=== PATIENT | female | born 1970 | race Caucasian/White ===

== ENCOUNTER → 2016-08-14 | Outpatient (CLI) | payer OTHER ==
[~2016-08-14] MED LIST: CETI10TA84 PO; CHOL100010; LRT5 PO; PRENTAB26 PO; PSYL48.59
--- NOTE | 2016-08-14 09:51 | DIAGNOSTIC IMAGING REPORT ---
RIGHT FOOT MIN 3 VIEWS ROUTINE CLINICAL HISTORY: Right foot pain. Evaluate for stress fracture. COMPARISON: None FINDINGS: The tarsometatarsal joints are intact. There is a bipartite medial sesamoid of the great toe. No fracture or suspicious lesion is evident. There is no radiographic evidence of a stress fracture. Minimal arthritis is shown within several articulations of the right foot. IMPRESSION: 1. No acute fracture or dislocation within the right foot. No radiographic evidence of a stress fracture. 2. Minimal arthritis within several articulations of the right foot. Electronically signed by: Joaquin Parker M.D. 08/14/2016 9:49 AM Dictated Date/Time: 08/14/2016 9:41 AM
== END | disposition home or self-care (01) ==
LOC: C.RAD1850 09:33
PROVIDERS: ATTEND Obstetrics & Gynecology
DX: M19.071 Primary osteoarthritis, right ankle and foot (principal)

== ENCOUNTER → 2016-08-28 | Outpatient (CLI) | payer OTHER | END | disposition home or self-care (01) | LOC: C.LABSPEC 14:40 | PROVIDERS: ATTEND Obstetrics & Gynecology | DX: O09.513 Supervision of elderly primigravida, third trimester (principal); Z3A.00 Weeks of gestation of pregnancy not specified ==

== ENCOUNTER 2016-09-26 19:40 | Inpatient (IN) | payer OTHER ==
[~2016-09-26] VITALS: Ht 162.6 cm; Wt 94.5 kg
[~2016-09-26 19:40] MED LIST changes: -CETI10TA84 PO; -CHOL100010; -PRENTAB26 PO; -PSYL48.59
[2016-09-26 21:41] VITALS: BMI 30.8
[2016-09-26 21:42] LABS: ALT/SGPT 24 U/L (12-78); BLOOD UREA NITROGEN 16 mg/dl (7-18); BUN/CREATININE RATIO 11.6 (10-20); CARBON DIOXIDE 22 mmol/L (21-32); CHLORIDE 102 mmol/L (98-107); GLUCOSE 87 mg/dl (70-99); POTASSIUM 3.9 mmol/L (3.5-5.1); SODIUM 134 mmol/L (136-145)
[2016-09-26 21:45] LABS: ALB/GLOB RATIO 0.6 (0.9-2); ALKALINE PHOSPHATASE 208 U/L (45-117); AST/SGOT 22 U/L (15-37)
[2016-09-26] MEDS ORDERED: LACTATED RINGER'S 1000ML 1,000 ML IV PRN (21:55)
[2016-09-26 21:57] LABS: URINE PROTIEN/CREAT RATIO 0.2 (0-0.2); URINE TOTAL PROTEIN 29.3 mg/dl (0-11.9)
[2016-09-26] MEDS ORDERED: LABETALOL HCL IV 5 MG/ML 20ML IV PRN (22:00)
[2016-09-26] MEDS ORDERED: ACETAMINOPHEN 325 MG TAB PO STA (22:05)
[2016-09-26] MEDS ORDERED: MAGNESIUM SULFATE 4GM / WTR 100ML IV ONE (22:15)
[2016-09-26 22:34] LABS: HEMATOCRIT 34.3 % (37-47); MEAN CELL VOLUME 84.3 fL (80-100); MEAN CORPUSCULAR HEMOGLOBIN 30.2 pg (25-34); RED BLOOD COUNT 4.07 M/uL (4.2-5.4); WHITE BLOOD COUNT 11.22 K/uL (4.8-10.8)
[2016-09-26] MEDS: LACTATED RINGER'S 1000ML 1,000 ML IV SCH (22:41)
[2016-09-26 22:46] LABS: MEAN CORPUSCULAR HGB CONC 35.9 g/dl (32-36); PLATELET COUNT 120 K/uL (130-400); PLT ESTIMATE DECREASED
[2016-09-26] MEDS: MAGNESIUM SULFATE / WTR 1,000 ML IV SCH (23:22)
[2016-09-27 01:09] VITALS: Ht 162.6 cm; Wt 94.5 kg
[2016-09-27] MEDS ORDERED: CETI10TA84 PO (01:09)
[2016-09-27] MEDS ORDERED: CHOL100010 (01:09)
[2016-09-27] MEDS ORDERED: PRENTAB26 PO (01:09)
[2016-09-27] MEDS ORDERED: PSYL48.59 (01:09)
[2016-09-27] MEDS ORDERED: LACTATED RINGER'S 1000ML 500 ML IV PRN (07:16)
[2016-09-27] MEDS: OXYTOCIN 30 UNITS/500ML NSS IV PRN ×2 (08:09→17:47)
[2016-09-27 08:20] LABS: BUN/CREATININE RATIO 12.5 (10-20); CALCIUM 8.5 mg/dl (8.5-10.1); CREATININE 1.1 mg/dl (0.60-1.20); POTASSIUM 3.7 mmol/L (3.5-5.1)
[2016-09-27 08:24] LABS: ALB/GLOB RATIO 0.6 (0.9-2)
[2016-09-27 08:28] LABS: HEMATOCRIT 36.3 % (37-47); MEAN CELL VOLUME 83.8 fL (80-100); MEAN CORPUSCULAR HEMOGLOBIN 30.3 pg (25-34); MEAN CORPUSCULAR HGB CONC 36.1 g/dl (32-36); PLATELET COUNT 117 K/uL (130-400); RED BLOOD COUNT 4.33 M/uL (4.2-5.4); WHITE BLOOD COUNT 12.12 K/uL (4.8-10.8)
[2016-09-27] MEDS ORDERED: CETIRIZINE HCL 10 MG TAB PO ONE (08:45)
[2016-09-27] MEDS ORDERED: ACETAMINOPHEN 325 MG TAB PO STA (12:55)
[2016-09-27] MEDS ORDERED: ACETAMINOPHEN 325 MG TAB ONE (12:56)
[2016-09-27 14:46] LABS: MEAN CORPUSCULAR HGB CONC 35.4 g/dl (32-36)
[2016-09-27 15:00] LABS: HEMATOCRIT 36.4 % (37-47); MEAN CELL VOLUME 85.8 fL (80-100); MEAN CORPUSCULAR HEMOGLOBIN 30.4 pg (25-34); RED BLOOD COUNT 4.24 M/uL (4.2-5.4); WHITE BLOOD COUNT 11.32 K/uL (4.8-10.8)
[2016-09-27 15:08] LABS: PLATELET COUNT 114 K/uL (130-400)
[2016-09-27 15:09] LABS: BASO % 0.3 %; BASO ABS # 0.03 K/uL (0-0.2); COMPLETE YES; EOS % 0.7 %; GIANT PLATELETS 1+; IG% 0.3 %; LYMPH % 11.5 %; MONO % 10.1 %; NEUT % 77.1 %; PLT ESTIMATE DECREASED
[2016-09-27 15:25] LABS: ALB/GLOB RATIO 0.7 (0.9-2); BUN/CREATININE RATIO 10.2 (10-20); CALCIUM 8.1 mg/dl (8.5-10.1); CREATININE 1.1 mg/dl (0.60-1.20); POTASSIUM 4.2 mmol/L (3.5-5.1)
[2016-09-27] MEDS ORDERED: MISOPROSTOL 25 MCG TAB ONE (17:21)
[2016-09-27] MEDS ORDERED: MISOPROSTOL 25 MCG TAB PV SCH ×2 (17:30→20:00)
[2016-09-27] MEDS: LACTATED RINGER'S 1000ML 1,000 ML IV SCH (22:14)
[2016-09-27] MEDS: MAGNESIUM SULFATE / WTR 1,000 ML IV SCH (22:22)
[2016-09-27 22:39] LABS: ALB/GLOB RATIO 0.6 (0.9-2); BUN/CREATININE RATIO 10.3 (10-20); CALCIUM 7.9 mg/dl (8.5-10.1); MAGNESIUM 5.7 mg/dl (1.8-2.4); POTASSIUM 3.5 mmol/L (3.5-5.1); URIC ACID 5.4 mg/dl (2.6-7.2)
[2016-09-27 22:47] LABS: HEMATOCRIT 34.7 % (37-47); MEAN CELL VOLUME 83.8 fL (80-100); MEAN CORPUSCULAR HGB CONC 35.7 g/dl (32-36); MEAN PLATELET VOLUME 13.7 fL (7.4-10.4); PLATELET COUNT 109 K/uL (130-400); RED BLOOD COUNT 4.14 M/uL (4.2-5.4)
[2016-09-28] MEDS ORDERED: BUPIVACAINE 0.25% 30 ML VIAL ONE ×3 (00:13→17:30)
[2016-09-28] MEDS ORDERED: FENTANYL 2MCG/ML ROPIV 1.25MG/ML 100ML BAG EPI ONE (00:13)
[2016-09-28] MEDS ORDERED: FENTANYL CITRATE INJ 50 MCG/1 ML 2 ML VIAL ONE ×3 (00:13→17:31)
[2016-09-28] MEDS ORDERED: EpHEDrine SULFATE INJ 50 MG/ML AMP ONE (00:13)
[2016-09-28] MEDS: LACTATED RINGER'S 1000ML 1,000 ML IV SCH ×2 (01:27→14:52)
[2016-09-28] MEDS ORDERED: NALOXONE HCL INJ 1 MG in SODIUM CHLORIDE 0.9% 1000ML 1,000 ML IV PRN ×4 (01:29)
[2016-09-28] MEDS ORDERED: LACTATED RINGER'S 1000ML 500 ML IV PRN (01:29)
[2016-09-28] MEDS ORDERED: EpHEDrine SULFATE INJ 50 MG/ML AMP IV PRN (01:30)
[2016-09-28] MEDS ORDERED: NALBUPHINE HCL INJ 10 MG/ML AMP IV PRN (01:30)
[2016-09-28] MEDS ORDERED: PROMETHAZINE HCL INJ 25 MG in SODIUM CHLORIDE 0.9% 50ML 50 ML IV PRN (01:30)
[2016-09-28] MEDS ORDERED: DiphenhydrAMINE HCL 50 MG/ML VIAL IV PRN (01:30)
[2016-09-28] MEDS ORDERED: NALOXONE HCL INJ 0.4 MG/1 ML VIAL/CARP IV PRN (01:30)
[2016-09-28] MEDS ORDERED: ONDANSETRON INJ 2 MG/ML 2 ML VIAL IV PRN (01:30)
[2016-09-28 05:07] LABS: ALB/GLOB RATIO 0.6 (0.9-2); BUN/CREATININE RATIO 8.6 (10-20); CALCIUM 7.7 mg/dl (8.5-10.1); MAGNESIUM 5.2 mg/dl (1.8-2.4); POTASSIUM 3.6 mmol/L (3.5-5.1); URIC ACID 5.3 mg/dl (2.6-7.2)
[2016-09-28 05:10] LABS: HEMATOCRIT 32.9 % (37-47); MEAN CELL VOLUME 85.9 fL (80-100); MEAN CORPUSCULAR HEMOGLOBIN 30.3 pg (25-34); MEAN CORPUSCULAR HGB CONC 35.3 g/dl (32-36); PLATELET COUNT 103 K/uL (130-400); RED BLOOD COUNT 3.83 M/uL (4.2-5.4); WHITE BLOOD COUNT 8.73 K/uL (4.8-10.8)
[2016-09-28 05:11] LABS: PLT ESTIMATE DECREASED
[2016-09-28] MEDS: FENTANYL 2MCG/ML ROPIV 1.25MG/ML 100ML BAG EPI PRN ×6 (06:58→21:03)
[2016-09-28] MEDS ORDERED: CETIRIZINE HCL 10 MG TAB PO PRN (09:00)
--- NOTE | 2016-09-28 10:46 | Anesthesiology Progress Note ---
Anesthesia Progress Note Date of Service Sep 28, 2016. Progress Notes Called by nursing 2/2 increased labor pain in lower abdominal area. I administered 3mL of 0.25% bupivacaine and 50mcg of fentanyl through her epidural. VSS throughout. Pt stated having improved pain relief after the bolus.
[2016-09-28 12:52] LABS: HEMATOCRIT 34.3 % (37-47); MEAN CELL VOLUME 86.6 fL (80-100); MEAN CORPUSCULAR HEMOGLOBIN 30.6 pg (25-34); MEAN CORPUSCULAR HGB CONC 35.3 g/dl (32-36); PLATELET COUNT 98 K/uL (130-400); PLT ESTIMATE DECREASED; RED BLOOD COUNT 3.96 M/uL (4.2-5.4); WHITE BLOOD COUNT 13.44 K/uL (4.8-10.8)
[2016-09-28 13:04] LABS: ALB/GLOB RATIO 0.7 (0.9-2); BUN/CREATININE RATIO 7.7 (10-20); CREATININE 1.1 mg/dl (0.60-1.20); MAGNESIUM 5.1 mg/dl (1.8-2.4); POTASSIUM 3.7 mmol/L (3.5-5.1)
[2016-09-28] MEDS ORDERED: ACETAMINOPHEN 500 MG TAB PO ONE (16:30)
[2016-09-28] MEDS ORDERED: AMPICILLIN IV 2,000 MG in SODIUM CHLOR 0.9% AD-VAN 100ML 100 ML IV ONE (16:30)
[2016-09-28] MEDS: OXYTOCIN 30 UNITS/500ML NSS IV PRN (16:41)
--- NOTE | 2016-09-28 18:01 | Anesthesiology Progress Note ---
Anesthesia Progress Note Date of Service Sep 28, 2016. Progress Notes Called by nursing 2/2 increasing labor pains. The pt stated more left lower abdominal discomfort with contractions. The pt was placed in left lateral position. The epidural was bolused with 4mL of 0.25% bupivacaine and 100mcg of fentanyl. VSS throughout. The pt stated improved labor pain after epidural bolus.
[2016-09-28 21:14] LABS: HEMATOCRIT 34.5 % (37-47); MEAN CELL VOLUME 86.5 fL (80-100); MEAN CORPUSCULAR HEMOGLOBIN 30.1 pg (25-34); MEAN CORPUSCULAR HGB CONC 34.8 g/dl (32-36); MEAN PLATELET VOLUME 13.6 fL (7.4-10.4); PLATELET COUNT 93 K/uL (130-400); RED BLOOD COUNT 3.99 M/uL (4.2-5.4); WHITE BLOOD COUNT 21.57 K/uL (4.8-10.8)
[2016-09-28 21:19] LABS: BUN/CREATININE RATIO 7.9 (10-20); CALCIUM 8.1 mg/dl (8.5-10.1); CREATININE 1.2 mg/dl (0.60-1.20); POTASSIUM 3.5 mmol/L (3.5-5.1)
[2016-09-28 21:21] LABS: ALB/GLOB RATIO 0.6 (0.9-2)
[2016-09-28] MEDS ORDERED: AMPICILLIN IV 2,000 MG in SODIUM CHLOR 0.9% AD-VAN 100ML 100 ML IV SCH (22:00)
[2016-09-29] MEDS ORDERED: METHYLERGONOVINE MALEATE 0.2 MG/ML AMP ONE (01:28)
[2016-09-29] MEDS: OXYTOCIN 30 UNITS/500ML NSS IV PRN (02:24)
[2016-09-29] MEDS ORDERED: MISOPROSTOL 200 MCG TAB ONE (02:27)
[2016-09-29] MEDS ORDERED: DIPHTHERIA/TETANUS/PERTUSSIS 0.5 ML SYR/VIAL IM. ONE (02:30)
[2016-09-29] MEDS ORDERED: SUPERCREAM 0.870 % 15GM JAR EXT PRN (02:30)
[2016-09-29] MEDS ORDERED: LANOLIN OINT EXT PRN ×2 (02:30)
[2016-09-29] MEDS ORDERED: ACETAMINOPHEN/CODEINE 300/30MG TAB PO PRN ×2 (02:30)
[2016-09-29] MEDS ORDERED: HYDROCORTISONE ACETATE 25 MG SUPP PR PRN (02:30)
[2016-09-29] MEDS ORDERED: ACETAMINOPHEN 325 MG TAB PO PRN (02:30)
[2016-09-29] MEDS ORDERED: CETIRIZINE HCL 10 MG TAB PO PRN (02:30)
[2016-09-29] MEDS ORDERED: BENZOCAINE 20% AER SPR 82.5 GM CAN EXT PRN (02:30)
[2016-09-29] MEDS ORDERED: OXYTOCIN 30 UNITS/500ML NSS IV PRN (02:30)
[2016-09-29] MEDS ORDERED: MAGNESIUM SULFATE / WTR 1,000 ML IV SCH (02:30)
[2016-09-29] MEDS ORDERED: MISOPROSTOL 200 MCG TAB PR STA (02:55)
[2016-09-29] MEDS: OXYTOCIN INJ 20 UNITS in LACTATED RINGER'S 1000ML 1,000 ML IV SCH ×2 (03:11→14:59)
[2016-09-29] MEDS: CEFAZOLIN IV 2,000 MG in DEXTROSE 5% 50ML 50 ML IV SCH ×3 (03:41→19:09)
--- NOTE | 2016-09-29 04:50 | DELIVERY SUMMARY ---
DATE OF OPERATION: 09/29/2016 The patient dilated to complete and pushed to deliver a viable female infant, Apgars 3, 8, 9 via over a second-degree perineal laceration. M/N bulb suctioned at perineum and shoulders and body delivered with ease. Infant with decreased tone upon delivery and cord doubly clamped and cut and infant to radiant warmer for drying and attention. Cord blood and cord gases were obtained. Meconium stained fluid had previously been noted. Cervix and sulcit were inspected and intact. The laceration was repaired in typical fashion using 3-0 Vicryl. With gentle traction on the umbilical cord the cord avulsed. Manual extraction of the placenta then took placed. The uterus was then explored x 2 and no retained products of conception noted and bimanual massage given. Dilute Pitocin was begun, however hemostasis was inadequate and therefore 800 mcg of rectal Cytotec was administered. Drainage of the bladder took placed under sterile conditions for approximately 300cc. This resulted in improved uterine tone. Mother and baby stable in recovery. EBL of 500 mL. I attest to the content of the Intraoperative Record and any orders documented therein. Any exceptions are noted below. MTDD
[2016-09-29 07:55] LABS: BASO % 0.1 %; BASO ABS # 0.02 K/uL (0-0.2); COMPLETE YES; HEMATOCRIT 26.5 % (37-47); IG% 0.4 %; LYMPH % 3.4 %; LYMPH ABS # 0.95 K/uL (1.2-3.4); MEAN CELL VOLUME 86.3 fL (80-100); MEAN CORPUSCULAR HEMOGLOBIN 30.3 pg (25-34); MEAN CORPUSCULAR HGB CONC 35.1 g/dl (32-36); MONO % 5.4 %; NEUT % 90.7 %; PLATELET COUNT 101 K/uL (130-400); PLT ESTIMATE NORMAL; RED BLOOD COUNT 3.07 M/uL (4.2-5.4); WHITE BLOOD COUNT 27.68 K/uL (4.8-10.8)
[2016-09-29 07:59] LABS: BUN/CREATININE RATIO 8.6 (10-20); CALCIUM 7.9 mg/dl (8.5-10.1); CREATININE 1.4 mg/dl (0.60-1.20); MAGNESIUM 5.4 mg/dl (1.8-2.4); POTASSIUM 3.6 mmol/L (3.5-5.1)
[2016-09-29 08:01] LABS: ALB/GLOB RATIO 0.5 (0.9-2)
[2016-09-29] MEDS: DOCUSATE SODIUM 100 MG CAP PO SCH ×2 (08:09→20:14)
--- NOTE | 2016-09-29 08:27 | Anesthesia Procedure Note ---
Anesthesia Epidural Removal Nt Date & Time Sep 29, 2016 at 08:27 Vital Signs Pain Intensity: 0.0 Notes Mental Status: alert / awake / arousable, participated in evaluation Nausea / Vomiting: adequately controlled Pain: adequately controlled Airway Patency, RR, SpO2: stable & adequate BP & HR: stable & adequate Hydration State: stable & adequate Neuraxial Anesthesia: was administered, sensory block is resolving Anesthetic Complications: no major complications apparent, pt satisfied with anesthetic care Epidural: removed without complications, with tip intact
[2016-09-29] MEDS: IBUPROFEN 600 MG TAB PO PRN ×3 (08:44→20:14)
[2016-09-29 18:55] LABS: HEMATOCRIT 23.1 % (37-47); MEAN CELL VOLUME 83.4 fL (80-100); MEAN CORPUSCULAR HEMOGLOBIN 30.3 pg (25-34); MEAN CORPUSCULAR HGB CONC 36.4 g/dl (32-36); MEAN PLATELET VOLUME 13.5 fL (7.4-10.4); PLATELET COUNT 110 K/uL (130-400); RED BLOOD COUNT 2.77 M/uL (4.2-5.4); WHITE BLOOD COUNT 24.68 K/uL (4.8-10.8)
[2016-09-29 18:56] LABS: PLT ESTIMATE NORMAL
[2016-09-29 19:07] LABS: ALB/GLOB RATIO 0.6 (0.9-2); BUN/CREATININE RATIO 13.2 (10-20); CALCIUM 7.8 mg/dl (8.5-10.1); CREATININE 1.4 mg/dl (0.60-1.20); MAGNESIUM THERAPEUTIC(L&DONLY) 5.3 mg/dl (1.8-2.4); POTASSIUM 3.5 mmol/L (3.5-5.1)
[2016-09-30] MEDS ORDERED: SODIUM CHLORIDE 0.9% 250ML 250 ML IV SCH (02:00)
[2016-09-30] MEDS ORDERED: SODIUM CHLORIDE 0.9% 1000ML 1,000 ML IV SCH (02:30)
[2016-09-30] MEDS: DOCUSATE SODIUM 100 MG CAP PO SCH ×2 (08:00→19:42)
[2016-09-30 08:10] LABS: HEMATOCRIT 23.3 % (37-47); MEAN CORPUSCULAR HEMOGLOBIN 30.3 pg (25-34); MEAN CORPUSCULAR HGB CONC 35.2 g/dl (32-36); RED BLOOD COUNT 2.71 M/uL (4.2-5.4); WHITE BLOOD COUNT 17.64 K/uL (4.8-10.8)
[2016-09-30 08:12] LABS: CALCIUM 7.9 mg/dl (8.5-10.1); CREATININE 1.2 mg/dl (0.60-1.20); POTASSIUM 3.6 mmol/L (3.5-5.1)
[2016-09-30 08:15] LABS: ALB/GLOB RATIO 0.5 (0.9-2)
[2016-09-30 08:54] LABS: MEAN PLATELET VOLUME 13.6 fL (7.4-10.4); PLATELET COUNT 106 K/uL (130-400)
[2016-09-30 08:55] LABS: BASO % 0.1 %; BASO ABS # 0.02 K/uL (0-0.2); COMPLETE YES; IG% 0.3 %; LARGE PLATELETS 1+; LYMPH % 13.3 %; LYMPH ABS # 2.35 K/uL (1.2-3.4); MONO % 6.9 %; NEUT % 77.4 %; PLT ESTIMATE DECREASED
--- NOTE | 2016-09-30 10:57 | Progress Note ---
Subjective Sep 30, 2016. Subjective conversation w/ patient, physical exam Ambulation: ambulating normally Voiding: incontinence Passing Gas: Yes Diet Tolerance: Regular Diet Lochia: Small Feeding Type: Breast Feeding Pain: no pain issues Comment: notes not much urge to void and then leaks on way to br, voids good volume and thinks she is empty. feels better off mag. no caldwell or other sx. Objective Vital Signs Date Time Temp Pulse Resp B/P Pulse Ox O2 Delivery O2 Flow Rate FiO2 09/30/16 09:52 Room Air Physical Exam General Appearance: WELL-APPEARING, WD/WN, NO APPARENT DISTRESS Respiratory/Chest: lungs clear Cardiovascular: regular rate, rhythm Abdomen: non tender, soft Fundus: Firm, Relation to Umbilicus Extremities: non-tender Laboratory Results Last 24 Hours Test 09/29/16 18:20 09/30/16 07:17 White Blood Count 24.68 K/uL 17.64 K/uL Red Blood Count 2.77 M/uL 2.71 M/uL Hemoglobin 8.4 g/dL 8.2 g/dL Hematocrit 23.1 % 23.3 % Mean Corpuscular Volume 83.4 fL 86.0 fL Mean Corpuscular Hemoglobin 30.3 pg 30.3 pg Mean Corpuscular Hemoglobin Concent 36.4 g/dl 35.2 g/dl RDW Standard Deviation 42.6 fL 44.4 fL RDW Coefficient of Variation 13.9 % 14.1 % Platelet Count 110 K/uL 106 K/uL Mean Platelet Volume 13.5 fL 13.6 fL Nucleated RBC Absolute Count (auto) 0.02 K/uL Nucleated Red Blood Cells % 0.1 % Platelet Estimate NORMAL DECREASED Sodium Level 130 mmol/L 134 mmol/L Potassium Level 3.5 mmol/L 3.6 mmol/L Chloride Level 98 mmol/L 102 mmol/L Carbon Dioxide Level 24 mmol/L 26 mmol/L Anion Gap 8.0 mmol/L 6.0 mmol/L Blood Urea Nitrogen 19 mg/dl 22 mg/dl Creatinine 1.40 mg/dl 1.20 mg/dl Est Creatinine Clear Calc Drug Dose 55.4 ml/min 64.6 ml/min Estimated GFR () 51.7 62.3 Estimated GFR (Non- 44.6 53.8 BUN/Creatinine Ratio 13.2 18.0 Random Glucose 118 mg/dl 70 mg/dl Calcium Level 7.8 mg/dl 7.9 mg/dl Magnesium Level 5.3 mg/dl Total Bilirubin 0.2 mg/dl 0.2 mg/dl Aspartate Amino Transf (AST/SGOT) 29 U/L 28 U/L Alanine Aminotransferase (ALT/SGPT) 17 U/L 16 U/L Alkaline Phosphatase 151 U/L 138 U/L Total Protein 5.3 gm/dl 5.8 gm/dl Albumin 1.9 gm/dl 1.9 gm/dl Globulin 3.4 gm/dl 3.9 gm/dl Albumin/Globulin Ratio 0.6 0.5 Neutrophils (%) (Auto) 77.4 % Lymphocytes (%) (Auto) 13.3 % Monocytes (%) (Auto) 6.9 % Eosinophils (%) (Auto) 2.0 % Basophils (%) (Auto) 0.1 % Neutrophils # (Auto) 13.64 K/uL Lymphocytes # (Auto) 2.35 K/uL Monocytes # (Auto) 1.22 K/uL Eosinophils # (Auto) 0.35 K/uL Basophils # (Auto) 0.02 K/uL Immature Granulocyte % (Auto) 0.3 % Immature Granulocyte # (Auto) 0.06 K/uL Large Platelets 1+ Assessment and Plan Post- Day#: 1 Continue Routine Care: stable, bps good, off magnesium now and labs ok. do not feel any evidence of worsening preeclampsia. rec routine pp care. transfer to floor. may want to use bladder scanner to be sure bladder empty--discussed with pt. she and partner also ask about future childbearing and repeat preeclampsia picture. answered ?s to the best of my ability.
[2016-09-30] MEDS: IBUPROFEN 600 MG TAB PO PRN (12:37)
[2016-09-30 12:58] VITALS: BP 111/55; PULSE 87; TEMP 36.5; O2SAT 99
[2016-09-30 16:10] VITALS: O2SAT 99
[2016-09-30 19:40] VITALS: BP 143/83; PULSE 90; TEMP 36.4
[2016-09-30 23:15] VITALS: BP 121/67; PULSE 84; TEMP 36.5; O2SAT 99
[2016-10-01] MEDS ORDERED: MAGNESIUM SULFATE / WTR 1,000 ML IV SCH (02:30)
[2016-10-01 03:35] VITALS: BP 144/77; PULSE 67; TEMP 36.5; O2SAT 98
--- NOTE | 2016-10-01 06:32 | Progress Note ---
Subjective Oct 01, 2016. Subjective conversation w/ patient, physical exam, chart review Ambulation: ambulating normally Voiding: incontinence Diet Tolerance: Regular Diet Lochia: Moderate Objective Vital Signs Date Time Temp Pulse Resp B/P Pulse Ox O2 Delivery O2 Flow Rate FiO2 10/01/16 03:35 36.5 67 18 144/77 98 Room Air 09/30/16 23:15 36.5 84 20 121/67 99 Room Air 09/30/16 23:15 99 Room Air 09/30/16 19:40 36.4 90 18 143/83 Room Air 09/30/16 16:10 99 Room Air 09/30/16 12:58 36.5 87 18 111/55 99 Room Air 09/30/16 09:52 Room Air Physical Exam General Appearance: WELL-APPEARING Abdomen: non tender Extremities: no calf tenderness Laboratory Results Last 24 Hours Test 09/30/16 07:17 White Blood Count 17.64 K/uL Red Blood Count 2.71 M/uL Hemoglobin 8.2 g/dL Hematocrit 23.3 % Mean Corpuscular Volume 86.0 fL Mean Corpuscular Hemoglobin 30.3 pg Mean Corpuscular Hemoglobin Concent 35.2 g/dl Platelet Count 106 K/uL Mean Platelet Volume 13.6 fL Neutrophils (%) (Auto) 77.4 % Lymphocytes (%) (Auto) 13.3 % Monocytes (%) (Auto) 6.9 % Eosinophils (%) (Auto) 2.0 % Basophils (%) (Auto) 0.1 % Neutrophils # (Auto) 13.64 K/uL Lymphocytes # (Auto) 2.35 K/uL Monocytes # (Auto) 1.22 K/uL Eosinophils # (Auto) 0.35 K/uL Basophils # (Auto) 0.02 K/uL RDW Standard Deviation 44.4 fL RDW Coefficient of Variation 14.1 % Immature Granulocyte % (Auto) 0.3 % Immature Granulocyte # (Auto) 0.06 K/uL Platelet Estimate DECREASED Large Platelets 1+ Sodium Level 134 mmol/L Potassium Level 3.6 mmol/L Chloride Level 102 mmol/L Carbon Dioxide Level 26 mmol/L Anion Gap 6.0 mmol/L Blood Urea Nitrogen 22 mg/dl Creatinine 1.20 mg/dl Est Creatinine Clear Calc Drug Dose 64.6 ml/min Estimated GFR () 62.3 Estimated GFR (Non- 53.8 BUN/Creatinine Ratio 18.0 Random Glucose 70 mg/dl Calcium Level 7.9 mg/dl Total Bilirubin 0.2 mg/dl Aspartate Amino Transf (AST/SGOT) 28 U/L Alanine Aminotransferase (ALT/SGPT) 16 U/L Alkaline Phosphatase 138 U/L Total Protein 5.8 gm/dl Albumin 1.9 gm/dl Globulin 3.9 gm/dl Albumin/Globulin Ratio 0.5 Assessment and Plan Post- Day#: 2 Continue Routine Care: home fe
--- NOTE | 2016-10-01 06:33 | Discharge Instructions ---
Discharge Instructions Admission Reason for Admission: Luna Bulb Discharge Discharge Diagnosis / Problem: delivery Discharge Goals Goal(s): Routine recovery after delivery Activity Recommendations Activity Limitations: per Instructions/Follow-up section . Instructions / Follow-Up Instructions / Follow-Up ACTIVITY RECOMMENDATIONS: * Gradual return to full activity over the next 2-3 weeks. * No lifting - nothing heavier than baby over the next 2-3 weeks. * Do not engage in vigorous exercise, sexual activity or sports until cleared by your physician. * Do not drive or operate any motorized equipment until cleared by your physician. * You may shower/bathe daily. MEDICATIONS: For discomfort or pain, you may use Acetaminophen (Tylenol), Ibuprofen (Advil), or Naproxen (Aleve) following the package directions. For constipation you may use Colace following the package directions. BREAST CARE: If you are not breast feeding: * Wear a supportive bra 24 hours a day for one to two weeks. * Avoid stimulating your breasts and nipples as much as possible during the first few weeks after delivery. * When taking a shower, have the warm water hit your back, not breasts. * When your breasts feel full, apply ice packs. Usually three to four times a day helps ease the discomfort. * Take a mild pain medication (Tylenol / Motrin) when you are uncomfortable. If breast feeding: * Use breast milk to lubricate nipples. Lansinoh cream may be used for sore nipples. You do not need to remove cream prior to breast feeding. If using a different brand of cream, check the label for directions regarding removal of cream prior to nursing. * Wear a supportive bra. * If having problems with breasts or breast feeding, call a water resource consultant or your health care provider. EPISIOTOMY CARE: After delivery, if you have an episiotomy (stitches), the following steps will ease discomfort and aid healing. * For the first 24 hours after delivery, place ice packs next to your episiotomy to help reduce swelling. * After the first 24 hour-period, sitz baths, either portable or in the tub, are suggested. A shower with a shower arm sprayed over the episiotomy may be comforting. * Richelle care should be done after each voiding and bowel movement. Squirt warm water from a plastic bottle over the perineum (region of the body between the anus and urinary opening) and pat dry. * Use Dermoplast to ease discomfort. Shake container. Willet directly over the episiotomy. Place a Tucks on a clean sanitary pad next to your episiotomy. SPECIAL CARE INSTRUCTIONS: When you are discharged from the hospital, it is important for you to follow the instructions listed below: * During the first week at home, you should be able to care for yourself and your baby. In addition, the usual light household activities are encouraged. * Limit your activities to the way you feel. Do not try to clean the house or move furniture. Be sensible. * If you actively engage in sports and have done so up until the time of your delivery, you may resume these activities as soon as you feel able. This may take up to one month or even longer. Use good judgment. * Continue to take your vitamins for at least six weeks after the of your baby. * Your diet need not be limited unless you were on a special diet before your delivery. Breast-feeding mothers need around 2500 calories per day and at least 64-80 ounces of fluid per day (8 to 10 glasses). * You should eat foods from the four major food groups. Crash diets or fad diets are to be avoided. Eating lean meats, fresh fruits and vegetables, low-fat dairy products, high fiber foods and a regular exercise program, will help you get back to your pre- weight without putting your health at risk. * Constipation is sometimes a problem after delivery. Take a mild laxative as needed. If breast feeding, Milk of Magnesia is acceptable to use. You may use a suppository or Fleets enema if no episiotomy. * A daily shower or tub bath is suggested. Be sure to thoroughly and gently dry the perineum. * A bloody vaginal discharge will usually continue until around four weeks post . A small amount of bleeding may continue for as long as six weeks. Vaginal discharge changes from the bright red bleeding after delivery to pink then brownish and finally yellowish-pink before becoming white and disappearing. * Bleeding may increase with activity. Your first period may come in 4-8 weeks. If you are breast feeding, your period may be delayed even longer. * Patten (sex) can begin whenever both you and your partner feel comfortable and do not have any form of genital infection. It is recommended that you wait at least six weeks for internal and external healing to occur. If you have questions, please talk to your health care practitioner. A condom should be used to prevent infection and . * Foreplay, gentle intercourse and lubrication is very important the first several times to prevent pain. A water-based lubricant such as K-Y jelly or Astroglide may be used. * If you have RH negative blood and your baby is RH positive, you will receive RHOGAM by injection prior to discharge. The nurse will give you a card to keep with you that has the date and place that you received RHOGAM after delivery. * During your care, you had a Rubella screen done to check for the presence of rubella antibodies in your blood. If your test was negative, you will receive a Rubella vaccine prior to discharge. This vaccine may cause a fever, soreness at the injection site and flu-like symptoms. If these symptoms persist, notify your health care practitioner. is not advised for one month after a Rubella vaccine. * Verbalizes understanding of car seat law as reviewed with patient nursing. * Car Seat hand-out given and reviewed with patient by nursing. * Shaken baby information reviewed with patient by nursing. Call you doctor if: * Heavy bleeding (saturating several pads an hour) or passing clots the size of your fist. * A fever >101 degrees F (38.3 degrees C) on two occasions four hours apart and /or chills. * Unusual pain in the pelvic or vaginal areas. * "Baby Blues" lasting longer than two weeks. If you have any questions or concerns, call your health care practitioner at . FOLLOW UP VISIT: * Please call the office at to schedule a 6 week examination. It is important you keep this appointment. It is important for you to make arrangements for either yearly or twice yearly check-ups thereafter. Current Hospital Diet Patient's current hospital diet: Regular OB Diet Discharge Diet Recommended Diet: Regular Diet Pending Studies Studies pending at discharge: no Medical Emergencies . Who to Call and When: Medical Emergencies: If at any time you feel your situation is an emergency, please call 911 immediately. . Non-Emergent Contact Non-Emergency issues call your: Primary Care Provider . . "Provider Documentation" section prepared by Francisco Javier Porter. VTE Core Measure Inpt VTE Proph given/why not?: Treatment not indicated
[2016-10-01 07:00] VITALS: BP 130/70; PULSE 72; TEMP 36.6; O2SAT 99
[2016-10-01] MEDS: DOCUSATE SODIUM 100 MG CAP PO SCH ×2 (08:26→17:30)
[2016-10-01 15:30] VITALS: BP 130/79; PULSE 80; TEMP 36.7; O2SAT 100
[2016-10-01 18:00] VITALS: BP_DIAS 79; PULSE 80; TEMP 36.7
== END 2016-10-01 18:00 | disposition home or self-care (01) | DRG 775 ==
LOC: C.OPB 19:40 → C.LD 19:40 → C.OPB 21:57 → C.OBG 09-30 09:45
PROVIDERS: ADMIT Obstetrics & Gynecology; ATTEND Obstetrics & Gynecology
PROC: 10E0XZZ Delivery of Products of Conception, External Approach (ICD-10-PCS; principal; 2016-09-29)
PROC: 10907ZC Drainage of Amniotic Fluid, Therapeutic from Products of Conception, Via Natural or Artificial Opening (ICD-10-PCS; principal; 2016-09-29)
PROC: 10H07YZ Insertion of Other Device into Products of Conception, Via Natural or Artificial Opening (ICD-10-PCS; principal; 2016-09-29)
PROC: 3E033VJ Introduction of Other Hormone into Peripheral Vein, Percutaneous Approach (ICD-10-PCS; principal; 2016-09-29)
PROC: 0U7C7ZZ Dilation of Cervix, Via Natural or Artificial Opening (ICD-10-PCS; principal; 2016-09-29)
PROC: 3E0P7GC Introduction of Other Therapeutic Substance into Female Reproductive, Via Natural or Artificial Opening (ICD-10-PCS; principal; 2016-09-29)
DX: O48.0 Post-term pregnancy (principal); O41.1230 Chorioamnionitis, third trimester, not applicable or unspecified; O36.0130 Maternal care for anti-D [Rh] antibodies, third trimester, not applicable or unspecified; O99.12 Other diseases of the blood and blood-forming organs and certain disorders involving the immune mechanism complicating childbirth; Z37.0 Single live birth; O26.893 Other specified pregnancy related conditions, third trimester; O14.14 Severe pre-eclampsia complicating childbirth; O76 Abnormality in fetal heart rate and rhythm complicating labor and delivery; O70.1 Second degree perineal laceration during delivery; O77.0 Labor and delivery complicated by meconium in amniotic fluid; O99.214 Obesity complicating childbirth; E66.9 Obesity, unspecified; Z68.35 Body mass index [BMI] 35.0-35.9, adult; O99.02 Anemia complicating childbirth; D64.9 Anemia, unspecified; D69.6 Thrombocytopenia, unspecified; O99.52 Diseases of the respiratory system complicating childbirth; J45.909 Unspecified asthma, uncomplicated; Z3A.40 40 weeks gestation of pregnancy

== ENCOUNTER → 2016-11-11 | Outpatient (CLI) | payer OTHER ==
[~2016-11-11] MED LIST changes: +CETI10TA84 PO; +CHOL100010; +PRENTAB26 PO; +PSYL48.59
[2016-11-11 13:29] LABS: CREATININE 0.96 mg/dl (0.60-1.20)
== END | disposition home or self-care (01) ==
LOC: C.LAB1850 09:59
PROVIDERS: ATTEND Obstetrics & Gynecology
DX: O14.93 Unspecified pre-eclampsia, third trimester (principal)

== ENCOUNTER → 2017-01-09 | Outpatient (CLI) | payer OTHER ==
[2017-01-09 13:05] LABS: ALT/SGPT 26 U/L (12-78); AST/SGOT 16 U/L (15-37); BLOOD UREA NITROGEN 12 mg/dl (7-18); BUN/CREATININE RATIO 12.1 (10-20); CARBON DIOXIDE 27 mmol/L (21-32); CHLORIDE 107 mmol/L (98-107); CREATININE 0.98 mg/dl (0.60-1.20); GLUCOSE 80 mg/dl (70-99); POTASSIUM 3.8 mmol/L (3.5-5.1); SODIUM 142 mmol/L (136-145)
[2017-01-09 13:08] LABS: ALKALINE PHOSPHATASE 93 U/L (45-117); CHOLESTEROL 252 mg/dl (0-200); CHOLESTEROL/HDL RATIO 3.6; HDL CHOLESTEROL 70 mg/dl; LDL CHOLESTEROL CALCULATED 155 mg/dl; TRIGLYCERIDES 133 mg/dl (0-150); VERY LOW DENSITY LIPOPROT CALC 27 mg/dl
== END | disposition home or self-care (01) ==
LOC: C.LABBFT 07:33
PROVIDERS: ATTEND Nurse Practitioner
DX: Z13.220 Encounter for screening for lipoid disorders (principal); E78.5 Hyperlipidemia, unspecified

== ENCOUNTER → 2017-02-06 | Outpatient (CLI) | payer OTHER | END | disposition home or self-care (01) | LOC: C.PATHSPEC 17:28 | PROVIDERS: ATTEND Plastic Surgery | DX: D18.01 Hemangioma of skin and subcutaneous tissue (principal) ==

== ENCOUNTER → 2018-02-25 | Outpatient (CLI) | payer OTHER | END | disposition home or self-care (01) | LOC: C.LAB 11:00 | PROVIDERS: ATTEND Obstetrics & Gynecology Reproductive Endocrinology | DX: Z31.41 Encounter for fertility testing (principal) ==

== ENCOUNTER → 2018-03-23 | Outpatient (CLI) | payer OTHER | END | disposition home or self-care (01) | LOC: C.LAB1850 15:26 | PROVIDERS: ATTEND Obstetrics & Gynecology Reproductive Endocrinology | DX: Z31.41 Encounter for fertility testing (principal); N97.0 Female infertility associated with anovulation; O09.01 Supervision of pregnancy with history of infertility, first trimester ==